=== PATIENT | female | born 1980 | race Caucasian/White ===

== ENCOUNTER 2023-07-03 09:29 | Outpatient (CLI) | payer OTHER ==
[2023-07-03 10:24] LABS: BASOPHILS % (AUTO) 0.5 % (0.0-2.0); EOSINOPHILS # (AUTO) 0.1 K/uL (0-0.4); EOSINOPHILS % (AUTO) 1.2 % (0.0-4.0); HEMATOCRIT 40.3 % (36-48); HEMOGLOBIN 13.9 g/dL (12.0-16.0); LYMPHOCYTES % (AUTO) 32.9 % (20.5-51.1); MEAN CORPUSCULAR HEMOGLOBIN 30 pg (27-31); MEAN CORPUSCULAR HGB CONC 35 g/dL (33-37); MEAN CORPUSCULAR VOLUME 86.7 fL (80-94); MONOCYTES # (AUTO) 0.5 K/uL (0.8-1.0); NEUTROPHILS # (AUTO) 3.4 K/uL (1.8-7.7); NEUTROPHILS % (AUTO) 57.4 % (42.2-75.2); PLATELET COUNT (AUTO) 330 K/uL (140-450); RED BLOOD CELL COUNT(AUTO) 4.65 MIL/uL (4.20-5.40)
[2023-07-03 10:51] LABS: ALBUMIN 3.7 g/dL (3.4-5.0); ANION GAP 9.4 (8-16); CALCIUM 8.6 mg/dL (8.5-10.1); CARBON DIOXIDE 26.5 mmol/L (21-32); CHOL/HDL RATIO 4.2 (1-4.5); CREATININE 0.7 mg/dL (0.6-1.3); POTASSIUM 3.9 mmol/L (3.5-5.1); THYROID STIMULATING HORMONE 1.41 uIU/mL (0.34-3.74); TOTAL BILIRUBIN 0.7 mg/dL (0.0-1.0); TOTAL PROTEIN, SERUM 8.6 g/dL (6.4-8.2)
[2023-07-04 09:06] LABS: T4 (THYROXINE) 9.3 ug/dL (4.5-12.0)
[2023-07-04 12:08] LABS: VITAMIN D, 25-HYDROXY 33.1 ng/mL (30.0-100.0)
== END 2023-07-03 20:07 | disposition home or self-care (01) ==
LOC: MLB 09:29
DX: Z13.220 Encounter for screening for lipoid disorders (principal); Z13.9 Encounter for screening, unspecified; Z13.1 Encounter for screening for diabetes mellitus; E55.9 Vitamin D deficiency, unspecified
CPT/HCPCS: 36415; 80053; 82306; 83036; 84436; 84443; 84480; 85025

== ENCOUNTER 2024-01-16 08:32 | Emergency (ER) | payer OTHER ==
[~2024-01-16] VITALS: Ht 157.5 cm; Wt 68.0 kg
[2024-01-16 08:51] VITALS: BP 142/96; PULSE 80; RESP 16; TEMP 98; O2SAT 98
[2024-01-16] MEDS: KETOROLAC 60 MG/2 ML VIAL IM ONE (09:31)
[2024-01-16] MEDS ORDERED: ACET-8905 PO (10:07)
[2024-01-16] MEDS ORDERED: IBUP-2213 PO (10:07)
[2024-01-16 10:40] VITALS: BP 125/69; PULSE 78; RESP 20; TEMP 99.8; O2SAT 98
== END 2024-01-16 10:33 | disposition home or self-care (01) ==
LOC: MED 08:32
DX: S13.4XXA Sprain of ligaments of cervical spine, initial encounter (principal); R07.89 Other chest pain; M54.50 Low back pain, unspecified; Z98.890 Other specified postprocedural states; Z88.0 Allergy status to penicillin; V89.2XXA Person injured in unspecified motor-vehicle accident, traffic, initial encounter; Y93.89 Activity, other specified; Y92.410 Unspecified street and highway as the place of occurrence of the external cause; Y99.8 Other external cause status
CPT/HCPCS: 71045; 72040; 93005; 96372; 99284; J1885

== ENCOUNTER 2024-01-21 09:35 | Outpatient (CLI) | payer OTHER ==
[~2024-01-21 09:35] MED LIST: ACET-8905 PO; IBUP-2213 PO
== END 2024-01-21 16:23 | disposition home or self-care (01) ==
LOC: MCT 09:35
DX: R07.9 Chest pain, unspecified (principal); K76.89 Other specified diseases of liver; V89.2XXA Person injured in unspecified motor-vehicle accident, traffic, initial encounter; Y93.89 Activity, other specified; Y92.89 Other specified places as the place of occurrence of the external cause; Y99.8 Other external cause status
CPT/HCPCS: 71250

== ENCOUNTER 2024-01-28 10:02 | Outpatient (CLI) | payer OTHER ==
[2024-01-29 09:07] LABS: FOLLICLE STIMULATING HORMONE 7.7 mIU/mL (.); PROGESTERONE 0.1 ng/mL (.); T4 (THYROXINE) 8.1 ug/dL (4.5-12.0)
== END 2024-01-28 20:05 | disposition home or self-care (01) ==
LOC: MLB 10:02
DX: R89.1 Abnormal level of hormones in specimens from other organs, systems and tissues (principal); Q44.6 Cystic disease of liver
CPT/HCPCS: 36415; 82672; 83001; 83002; 84144; 84436; 84443